=== PATIENT | female | born 1980 | race Caucasian/White ===

== ENCOUNTER 2021-08-29 16:26 | Emergency (ER) | payer OTHER, SELFPAY ==
[2021-08-29 16:36] VITALS: BP 143/88; PULSE 84; RESP 18; TEMP 36.9; O2SAT 99; BMI 35.1
--- NOTE | 2021-08-29 16:39 | DI.RAD.S_ITS ---
PROCEDURE: XR FOOT RT MIN 3V INDICATIONS: R foot injury. toes 2-5 TECHNIQUE: 3 views of the foot were acquired. COMPARISON: None. FINDINGS: Bones: Oblique linear lucency at the 5th proximal phalangeal head extending into the interphalangeal joint is suspicious for a minimally displaced fracture versus remote prior injury. The remaining visualized osseous structures are intact. No suspicious bony lesions. Soft tissues: Mild soft tissue edema is seen in the 2nd toe. IMPRESSION: Suspected minimally displaced oblique intra-articular fracture of the 2nd proximal phalangeal head. Recommend correlation for point tenderness. Dictated by: Boni Oden M.D. on 08/29/2021 at 17:10 Approved by: Boni Oden M.D. on 08/29/2021 at 17:13
--- NOTE | 2021-08-29 17:22 | ED.LOWEXIN ---
HPI - Extremity Injury (Lower) General Chief Complaint: Extremity Injury, Lower Stated Complaint: rt ankle injury Time Seen by Provider: 08/29/21 17:07 Source: patient Mode of arrival: Ambulatory History of Present Illness HPI Narrative: 41-year-old female presents to the emergency department with right foot pain after falling down a couple of stairs earlier today. Positive bruising and swelling noted 2nd proximal phalange. Patient denies hitting her head or any LOC from the fall. Related Data Allergies Allergy/AdvReac Type Severity Reaction Status Date / Time No Known Drug Allergies Allergy Verified 08/29/21 16:38 Review of Systems Review of Systems Narrative: Narrative: GENERAL: Denies chills, fatigue, fever, sweats. See HPI HEENT: Denies sinus pain, ear pain, sore throat, difficulty swallowing, dizziness. RESPIRATORY: Denies dyspnea, cough, wheezing, sputum. CARDIOVASCULAR: Denies chest pain, palpitations, edema. GASTROINTESTINAL: Denies nausea, vomiting, abdominal pain, diarrhea, constipation. : Denies dysuria, frequency, incontinence, hematuria, urinary retention, flank pain. MSK: Denies weakness, joint pain, or bony pain. SKIN: Denies rashor pruritis. NEUROLOGIC: Denies weakness, dizziness, headache, numbness, confusion. PSYCHIATRIC: No concerning psychosocial issues. Patient History Social History Smoking Status: Never smoker Smoking Status: Never smoker alcohol intake frequency: 0-2 drinks per day Substance Use Type: does not use Exam Narrative Exam Narrative: Exam Narrative: GENERAL: This is a well-nourished, well-developed patient, in no acute distress HEAD: Atraumatic. Normocephalic. EYES: Pupils equal round and reactive. Extraocular motions intact. No scleral icterus, injection or drainage. ENT: Nose without bleeding, purulent drainage. Throat without erythema, tonsillar hypertrophy or exudate. Airway patent. NECK: Trachea midline. No JVD or lymphadenopathy. Nontender. CARDIOVASCULAR: Regular rate and rhythm without murmurs, peripheral pulses intact, cap refill <2 sec. RESPIRATORY: Breath sounds equal and clear bilaterally. No wheezes, rales, or rhonchi. No cough. No increased respiratory effort. No accessory muscle use. GASTROINTESTINAL: Abdomen soft, non-tender, nondistended without guarding or rebound. No suprapubic pain. MSK: Moves all extremities. Normal range of motion, no clubbing or edema. Neurovascularly intact. NEURO: A&O x 3. SKIN: Warm, dry, no rashes or lesions noted. Initial Vital Signs Initial Vital Signs: Vital Signs Temperature 98.4 F 08/29/21 16:36 Pulse Rate 84 08/29/21 16:36 Respiratory Rate 18 08/29/21 16:36 Blood Pressure 143/88 H 08/29/21 16:36 Pulse Oximetry 99 08/29/21 16:36 Oxygen Delivery Method 08/29/21 16:36 Extrem Other: FOOT: There is bruising and swelling but no asymmetry. There is no tenderness to general palpation. Sensation grossly intact. There is no tenderness over the mid-foot, metatarsals or arch. The ankle flexion and extension is intact. Toes range of motion intact. The contralateral foot exam is unremarkable. Course Orders Ordered: ED Orders 08/29/21 16:39 XR foot RT min 3V Stat Vital Signs Vital signs: Vital Signs - 8 hr 08/29/21 16:36 Temperature 98.4 F Pulse Rate 84 Respiratory Rate 18 Blood Pressure 143/88 H Pulse Oximetry 99 Oxygen Delivery Method Room Air MDM - Extremity Injury (Lower) Differential Diagnosis Differential diagnosis: Likely fracture of toe Imaging Data Extremity x-ray #1: Radiologist's Impression: [address] [address] XRay Report Signed Patient: Katerin Lucio MR#: [id number] : 1980 Acct:[id number] Age/Sex: 41 / F Date of Service: 08/29/21 Loc: ED Accession Number: [id number] ?? Procedure: XR foot RT min 3V Ordering Provider: Philip Herbert MD PROCEDURE:? XR FOOT RT MIN 3V ? INDICATIONS:? R foot injury. toes 2-5 ? TECHNIQUE:? 3 views of the foot were acquired.? ? COMPARISON:? None. ? FINDINGS:? ? Bones:? Oblique linear lucency at the 5th proximal phalangeal head extending into the interphalangeal joint is suspicious for a minimally displaced fracture versus remote prior injury.? The remaining visualized osseous structures are intact.? No suspicious bony lesions.? ? Soft tissues:? Mild soft tissue edema is seen in the 2nd toe. ? ? IMPRESSION:? Suspected minimally displaced oblique intra-articular fracture of the 2nd proximal phalangeal head.? Recommend correlation for point tenderness. ? ? Dictated by: Boni Oden M.D. on 08/29/2021 at 17:10 ? ? Approved by: Boni Oden M.D. on 08/29/2021 at 17:13 ? MDM Narrative Medical decision making narrative: 41-year-old female presents to the emergency department with right foot pain. Suspected fracture of right foot 2nd proximal phalange. Recommended jeff taping, NSAIDs and rice. Discussed plan of care with patient, who was agreeable with course of action. Discharge Plan Departure Patient Disposition: Home Clinical Impression: Fracture of toe Instructions: DI for Fracture Activity Restrictions/Additional Instructions: *You have been diagnosed with a right 2nd toe fracture. This does not require surgery or reduction. You may jeff tape your toes for comfort. Rest (modified activity), along with ice, compression wrap/splint-immobilize as directed and elevation above heart. Tylenol or Ibuprofen for discomfort. Please follow-up with your family doctor if symptoms persist or worsen. *What to do: *Please continue to take your regular medications as directed. [ ] New medication prescriptions sent to your pharmacy: [ ] [ ] New medication written as a paper prescription [x ] No new medications given *Please follow up with your primary care provider in 2-3 days, call for an appointment. Let them know you were seen in the Emergency Department and that we ask that you be seen in follow up. We will electronically transmit a record of today's note if your PCP is in our system *If you do not have a primary care provider please contact the [facility] Resource line at [phone]. They will ask some questions about your medical history and help get you set up with a doctor in the community. ? Return to ER if you should have any new, worsening or concerning symptoms, such as worsening pain, severe headache, confusion, chest pain, difficulty breathing, fever greater than 101 F, shaking chills, persistent vomiting to the point that you cannot drink fluids, or other new or worsening symptoms. Visit Report Forms: Patient Portal/API
--- NOTE | 2021-08-29 17:49 | PC.NURSE ---
Radames taped 2nd and 3rd R foot
== END 2021-08-29 17:50 | disposition home or self-care (01) ==
PROVIDERS: Emergency Provider Registered Nurse
DX: S92.911A Unspecified fracture of right toe(s), initial encounter for closed fracture (principal); W10.9XXA Fall (on) (from) unspecified stairs and steps, initial encounter
CPT/HCPCS: 73630; 99281; 99283